=== PATIENT | male | born 1970 | race African-American/Black ===

== ENCOUNTER 2019-06-04 12:23 | Emergency (ER) | payer SELFPAY ==
--- NOTE | ~2019-06-04 | XR_ITS ---
XR chest 1V portable DATE: 06/04/2019 14:13 INDICATION: Cough, fever TECHNIQUE: Portable upright AP chest on 06/04/2019 at 1408 hours COMPARISON: 09/29/2015 PA and lateral chest FINDINGS: Normal heart size. No hilar or mediastinal enlargement. No pulmonary infiltrate or consolid ation, pleural effusion or pulmonary vascular congestion or pneumothorax. IMPRESSION: No active cardiopulmonary disease Reviewed, dictated and finalized at location B.
[2019-06-04 12:30] VITALS: BP 137/91; PULSE 87; RESP 16; TEMP 37.4; O2SAT 98
--- NOTE | 2019-06-04 12:47 | PC.NURSE ---
pt states has been using inhalers, robitussin and mucinex without much relief.
--- NOTE | 2019-06-04 13:20 | ED.URI ---
HPI - URI/Sore Throat General Chief Complaint: Upper Respiratory Infection Stated Complaint: PERSISTENT COUGH, INT FEVER Time Seen by Provider: 06/04/19 13:02 Source: patient Mode of arrival: ambulatory Limitations: no limitations History of Present Illness HPI Narrative: Patient presents with chief complaint of dry cough and low-grade fever of 100 ?F over the past 2 days. Patient states his cough has not been productive. Patient states he has a history of bronchitis and his symptoms feel the same. Patient denies body aches, nausea, vomiting, diarrhea, lethargy, shortness of breath, chest pain. Patient states that he attempted to use an inhaler for years ago, Robitussin and Mucinex without resolution of his symptoms. Patient denies international travel or known COVID exposure. Patient states he came to the ER today for antibiotics and a new inhaler. Patient denies history of smoking or COPD. Related Data Allergies Allergy/AdvReac Type Severity Reaction Status Date / Time No Known Allergies Allergy Verified 06/04/19 12:48 Review of Systems Review of Systems: Narrative: CONSTITUTIONAL: Reports low-grade fever denies chills, or sweats. EYES: Denies visual changes, redness, or discharge. ENT: Denies rhinorrhea, congestion, sore throat, or otalgia. CARDIOVASCULAR: Denies chest pain, palpitations, or edema. RESPIRATORY: Reports dry cough denies dyspnea. GASTROINTESTINAL: Denies abdominal pain, nausea, vomiting, or diarrhea. GENITOURINARY: Denies dysuria or hematuria. SKIN: Denies rash or itching. MUSCULOSKELETAL: Denies back pain, joint pain, or myalgia. NEUROLOGIC: Denies headache, numbness, dizziness, or weakness. PSYCHIATRIC: Denies anxiety or depression. Exam Narrative: Exam Narrative: GENERAL: Well-appearing, well-nourished, and in no acute distress. HEAD: Normocephalic, atraumatic. EYES: PERRLA and EOMI. ENT: Nares clear, no rhinorrhea or epistaxis. Mucous membranes moist. Oropharynx without tonsillar hypertrophy exudate or other lesions. Bilateral TMs pearly ovalles nonbulging CHEST: Clear to auscultation. No respiratory distress. No wheezes rales or rhonchi. No tachypnea. HEART: Regular rate and rhythm. No murmur heard. Normal peripheral pulses. SKIN: Warm, dry, no rash. NEURO: No focal deficits. Alert and oriented x3. PSYCH: Normal mood and affect. Course Vital Signs Vital signs: Vital Signs Temperature 99.3 F 06/04/19 12:30 Pulse Rate 87 06/04/19 12:30 Respiratory Rate 16 06/04/19 12:30 Blood Pressure 137/91 H 06/04/19 12:30 Pulse Oximetry 98 06/04/19 12:30 Temperature 99.3 F 06/04/19 12:30 Pulse Rate 87 06/04/19 12:30 Respiratory Rate 16 06/04/19 15:47 Blood Pressure 137/91 H 06/04/19 12:30 Pulse Oximetry 98 06/04/19 12:30 MDM - URI/Sore Throat MDM Narrative Medical decision making narrative: Patient told the nurse that he wants to be tested for COVID so that he can stop being hounded by his employer and his family. Informed patient that the health department is in control of testing and he should contact them if he desires outpatient testing. Patient is not hypoxic and having any trouble breathing.He states he does not feel weak, fatigued, or think he needs admission by any means. His flu test was negative and there is not sign of pneumonia on his chest xray. Patient is instructed to go home and self quarantine. He will be given a new inhaler and will be prescribed cough syrup and will receive work note to not return while he is ill. Differential Diagnosis Differential diagnosis: Likely upper respiratory infection, croup, otitis media, sinusitis, viral infection, bronchitis, influenza and pharyngitis Lab Data Labs: Influenza A Screen Negative Reference Range: Negative Influenza B Screen Negative Reference Range: Negative Imaging Data Radiologist's impression: ITS Impressions Chest X-Ray 06/04/19 14:15 IMPRESSION: No active ca
--- NOTE | 2019-06-04 15:09 | PC.NURSE ---
Pt approaches desk asking how he gets a covid-19 test, and if we have them here. Explained that there is criteria for testing, that due to limitations with tests that the state [facility] is strict with guidelines regarding whom gets the test.
--- NOTE | 2019-06-04 15:12 | PC.NURSE ---
pt came to ed desk request COVID kit. pt made aware that testing is done based on health dept guidelines. mabel bruce informed of pts concerns
[2019-06-04 15:47] VITALS: RESP 16
== END 2019-06-04 15:49 | disposition home or self-care (01) ==
PROVIDERS: Emergency Provider Emergency Medicine
DX: B34.9 Viral infection, unspecified (principal)
CPT/HCPCS: 71045; 87804; 99283

== ENCOUNTER 2020-04-14 21:32 | Emergency (ER) | payer OTHER, SELFPAY ==
--- NOTE | ~2020-04-14 | CT_ITS ---
EXAMINATION: CTA chest PE protocol DATE: 04/15/2020 01:23 INDICATION: Shortness of breath. TECHNIQUE: Computed tomography angiography (CTA) of the chest was performed with 100 mL Omnipaque-350 intravenous contrast timed to evaluate the pulmonary arteries. Coronal maximum intensity projection 3D-reconstructions were created by the technologist. Automated exposure control and iterative reconst ruction technique were employed. The dose-length product was 1019.02 mGy-cm. COMPARISON: Chest 2 views 04/14/2020 FINDINGS: The lung volumes are small. There are patchy airspace and groundglass opacities throughout the lungs bilaterally. There is mild emphysema. No pleural effusion. The heart size is normal. There is no pulmonary embolus. There is thickening of left adrenal gland, likely benign. There is mild bila teral gynecomastia. There is mild mediastinal lymphadenopathy, likely reactive. There is mild thoraci c spondylosis. IMPRESSION: 1. No pulmonary embolus. Sensitivity is severely decreased by artifacts including motion artifact. 2. Small lung volumes with diffuse lung disease, consistent with COVID-19 pneumonia. 3. Mild emphysema. 4. Mild mediastinal lymphadenopathy, likely reactive. Reviewed, dictated and finalized at location A. ER INSULATION IMPRESSION: 1. No pulmonary embolus. Sensitivity is severely decreased by artifacts includi ng motion artifact. 2. Small lung volumes with diffuse lung disease, consistent with COVID-19 pneum onia. 3. Mild emphysema. 4. Mild mediastinal lymphadenopathy, likely reactive.
--- NOTE | ~2020-04-14 | XR_ITS ---
EXAMINATION: XR chest 2V DATE: 04/14/2020 22:55 INDICATION: COVID positive presenting with shortness of breath and chest pressure TECHNIQUE: PA and lateral views of the chest were obtained. COMPARISON: Chest radiograph dated 06/04/2019 FINDINGS: Interstitial and mild airspace opacities in the right mid and bilateral lower lung zones. No pleural effusion or pneumothorax. Cardiac silhouette is mildly enlarged although this could be exaggerated by the decreased lung volumes. IMPRESSION: 1. New opacities in the right mid and bilateral lower lung zones which be would be consistent with co mputed pneumonia with differential including atelectasis or pulmonary edema. 2. Possible mild cardiomegaly. Reviewed, dictated and finalized at location A. TURNER IMPRESSION: 1. New opacities in the right mid and bilateral lower lung zones which be would be consistent with computed pneumonia with differential including atelectasis or pulmonary edema. 2. Possible mild cardiomegaly.
[2020-04-14 21:45] VITALS: BP 183/100; PULSE 81; RESP 20; TEMP 37; O2SAT 95
--- NOTE | 2020-04-14 22:37 | ECG_ITS ---
Measurements Intervals [place] Rate: 77 P: 45 [place]: 170 QRS: -6 QRSD: 125 T: 17 QT: 384 QTc: 435 Interpretive Statements SINUS RHYTHM VOLTAGE CRITERIA FOR LVH BORDERLINE T WAVE ABNORMALITY- INFERIOR LEADS BORDERLINE ECG Electronically Signed On 04-15-2020 6:58:37 ROLL[employer] STAKER by Pepe Zambrano D.O.
[2020-04-14 23:10] VITALS: BP 124/75; PULSE 83; RESP 18; O2SAT 96
[2020-04-14 23:19] LABS: Basophils Percent Auto 0.2 % (0.2-1.2); Eosinophils Percent Auto 0.4 % (0-4.4); Hematocrit 45.2 % (42.0-52.0); Immature Granulocyte Absolute 0.05 K/mm3 (0.00-0.031); Lymphocytes Absolute Auto 1.01 K/mm3 (0.9-3.2); Lymphocytes Percent Auto 19.6 % (18.3-44.2); Mean Corpuscular HGB Conc 33.2 g/dl (32-36); Mean Corpuscular Hemoglobin 28.6 pg (26-34); Mean Corpuscular Volume 86.1 fl (80-100); Mean Platelet Volume 9.1 fl (7.4-10.4); Monocytes Absolute Auto 0.3 K/mm3 (0.1-0.6); Monocytes Percent Auto 4.8 % (2.6-8.5); Neutrophils Absolute Auto 3.8 K/mm3 (1.3-6.7); Platelet Count Result 223 k/mm3 (150-375); Red Blood Count 5.25 M/mm3 (4.6-6.20); Red Cell Distribution Width 13.4 % (11.5-14.5); White Blood Count 5.2 K/mm3 (4.5-10.0)
[2020-04-14 23:29] LABS: INR 0.9; Prothrombin Time 12.2 Seconds (11.1-14.7)
[2020-04-14 23:30] LABS: Partial Thromboplastin Time 31.9 SECONDS (22.3-36.8)
[2020-04-14 23:32] LABS: Anion Gap 5 mmol/L (8-16); Blood Urea Nitrogen 12 mg/dL (9-20); Calcium 7.5 mg/dL (8.4-10.2); Carbon Dioxide 30 mmol/L (22-30); Chloride 103 mmol/L (98-107); D Dimer 0.84 ug/mL (<0.48); Estimated CRCL calculation 106 ml/min; Estimated Glomerular Filt Rate > 60; Glucose 140 mg/dL (75-110); Potassium 4.1 mmol/L (3.4-5.0); Sodium 138 mmol/L (137-145)
[2020-04-14 23:43] LABS: Troponin I < 0.012 ng/mL (0.000-0.034)
--- NOTE | 2020-04-15 01:04 | ED.GENADULT ---
HPI - General Adult General Chief complaint: Shortness of Breath/Dyspnea Stated complaint: Covid+ Short of breath Time Seen by Provider: 04/15/20 00:41 Source: patient History of Present Illness HPI narrative: Patient is a 49 y/o male complaining of cough for 1 week. He states that he coughs up mucous most of time. He tried Mucinex and Albuterol inhaler which did not help with his symptoms. He also has some pleuritic chest pain and SOB. He denies any fever. He states that he tested positive for COVID 4 days ago. Related Data Allergies Allergy/AdvReac Type Severity Reaction Status Date / Time No Known Allergies Allergy Verified 04/14/20 21:34 Review of Systems Constitutional: Constitutional: Denies chills, Denies fever(s), Denies headache(s) and Denies weakness Eyes: Eyes: Denies blurry vision ENT: Denies headache(s) and Denies neck pain Cardiovascular: Cardiovascular: Reports chest pain and Reports dyspnea Respiratory: Respiratory: Reports cough and Reports dyspnea Gastrointestinal: Gastrointestinal: Denies abdominal pain, Denies diarrhea, Denies nausea and Denies vomiting Genitourinary: Genitourinary: Denies hematuria and Denies dysuria Musculoskeletal: Musculoskeletal: Denies back pain and Denies neck pain Neurologic: Denies headache(s) and Denies weakness [facility] Social History Social History Gender identity (if verbalized by the patient): Male Exam Const: General: no acute distress and well developed Orientation/consciousness: oriented to person, oriented to place, oriented to time and patient oriented x3 HENMT: Head: normocephalic Ears: external ears normal General nose exam: Normal external nose present Eyes: General: appearance normal, both eyes and all related structures Conjunctivae: conjunctivae normal Neck: Neck: normal visual inspection and full ROM Chest: Chest palpation & inspection: normal inspection of the chest and no tenderness Resp: Effort & Inspection: normal respiratory effort Auscultation: clear to auscultation bilaterally Cardio: Rate: regular rate Rhythm: regular rhythm GI: GI Palp: No abdominal tenderness and Yes Soft to palpation Skin: General skin exam: normal color and turgor normal Neuro: General: oriented to person, oriented to place, oriented to time and patient oriented x3 Cognition (Neuro): normal cognition Extrem: General: normal to inspection, full ROM and no pedal edema Psych: Appearance: grossly normal Mental Status: mental status grossly normal Affect: normal affect Course Vital Signs Vital signs: Vital Signs Temperature 37.0 C 04/14/20 21:45 Pulse Rate 81 04/14/20 21:45 Respiratory Rate 20 04/14/20 21:45 Blood Pressure 183/100 H 04/14/20 21:45 Pulse Oximetry 95 04/14/20 21:45 Temperature 36.8 C 04/15/20 02:59 Pulse Rate 76 04/15/20 02:59 Respiratory Rate 16 04/15/20 02:59 Blood Pressure 131/75 04/15/20 02:59 Pulse Oximetry 99 04/15/20 02:59 Medical Decision Making Vital Signs Vital Signs: Vital Signs Temperature 37.0 C 04/14/20 21:45 Pulse Rate 81 04/14/20 21:45 Respiratory Rate 20 04/14/20 21:45 Blood Pressure 183/100 H 04/14/20 21:45 Pulse Oximetry 95 04/14/20 21:45 Temperature 36.8 C 04/15/20 02:59 Pulse Rate 76 04/15/20 02:59 Respiratory Rate 16 04/15/20 02:59 Blood Pressure 131/75 04/15/20 02:59 Pulse Oximetry 99 04/15/20 02:59 Lab Data Result diagrams: 04/14/20 23:12 04/14/20 23:12 Labs: Lab Results 04/14/20 04/14/20 04/14/20 Range/Units 23:12 23:12 23:12 WBC 5.2 (4.5-10.0) K/mm3 RBC 5.25 (4.6-6.20) M/mm3 Hgb 15.0 (14.0-18.0) g/dL Hct 45.2 (42.0-52.0) % MCV 86.1 (80-100) fl MCH 28.6 (26-34) pg MCHC 33.2 (32-36) g/dl RDW 13.4 (11.5-14.5) % Plt Count 223 (150-375) k/mm3 MPV 9.1 (7.4-10.4) fl Immature Gran % (Auto
[2020-04-15] MEDS: KETOROLAC 30 MG/ML VIAL (*BKC) IV PUSH (01:10)
[2020-04-15] MEDS: guaiFENesin/DEXTROMETHORPHAN 10 ML UDC PO (01:15)
[2020-04-15 02:32] LABS: Troponin I < 0.012 ng/mL (0.000-0.034)
[2020-04-15 02:59] VITALS: BP 131/75; PULSE 76; RESP 16; TEMP 36.8; O2SAT 99
== END 2020-04-15 03:00 | disposition home or self-care (01) ==
PROVIDERS: Emergency Medicine; Emergency Provider Emergency Medicine
DX: U07.1 COVID-19 (principal); R07.9 Chest pain, unspecified; R94.31 Abnormal electrocardiogram [ECG] [EKG]; R91.8 Other nonspecific abnormal finding of lung field
CPT/HCPCS: 36415; 71046; 71275; 80048; 84484; 85025; 85380; 85610; 85730; 93005; 96374; 99284; A9270; J1885; Q9967

== ENCOUNTER 2022-09-22 14:17 | Emergency (ER) | payer OTHER, SELFPAY ==
--- NOTE | ~2022-09-22 | CT_ITS ---
EXAMINATION: CT soft tissue neck w con DATE: 09/22/2022 18:31 INDICATION: Right lateral facial swelling, pain with eating TECHNIQUE: Computed tomography (CT) of the neck was performed with 75 mL Omnipaque-350 intravenous co ntrast. The dose-length product was 1179.55 mGy-cm. COMPARISON: None FINDINGS: Motion artifact required repeat imaging. The thyroid gland is unremarkable. The submandibular and parotid glands are symmetric. There is no cervical lymphadenopathy. Mildly prominent adenoids and p alatine tonsils. There are no masses identified. The superior mediastinum is unremarkable. The a irway is unremarkable. Parapharyngeal and pre-glottic fat planes are preserved. Medial course of the left common carotid artery. The orbits are unremarkable. Small left inferior maxillary sinus r etention cyst or polyp, minimal anterior ethmoid mucosal thickening, the remaining aerated spaces are clear. Visualized lung parenchyma is clear. There is cervical spondylosis. IMPRESSION: Mild prominence of the adenoids and palatine tonsils, otherwise normal CT soft tissue neck findings. Reviewed, dictated and finalized at location K.
[2022-09-22 14:22] VITALS: BP 156/86; PULSE 90; RESP 20; TEMP 36.1; O2SAT 97
--- NOTE | 2022-09-22 17:08 | ED.GENADULT ---
HPI - General Adult General Chief complaint: Unspecified Stated complaint: swelling to right side of face/lump on neck Time Seen by Provider: 09/22/22 15:45 Source: patient Mode of arrival: ambulatory Limitations: no limitations History of Present Illness HPI narrative: Patient is a 52-year-old male who presents to the ED with report of swelling to his right lateral face. Patient reports having pain and swelling for the last 3 days. He states the swelling intermittently worsens and improves. Some improvement with icing face. He noticed the pain was worse with eating or drinking 3 days ago, has not had any further pain with eating since then. He has been taking Tylenol for the pain. Denies any fevers, nausea, vomiting, difficulty breathing, difficulty swallowing, sore throat, dental pain, gum pain or swelling. Patient also mentions having a lump to his left posterior neck for several years which seems to be increasing in size. Related Data Allergies Allergy/AdvReac Type Severity Reaction Status Date / Time No Known Allergies Allergy Verified 09/22/22 14:18 Review of Systems Review of Systems: CONSTITUTIONAL: Denies fever, chills, or sweats. EYES: Denies visual changes, redness, or discharge. ENT: See HPI. CARDIOVASCULAR: Denies chest pain. RESPIRATORY: Denies dyspnea. GASTROINTESTINAL: Denies abdominal pain, nausea, vomiting. SKIN: See HPI. All systems reviewed & are unremarkable except as noted in HPI and below PMFSH Social History Social History Gender identity (if verbalized by the patient): Male Exam Narrative: GENERAL: Well appearing, morbidly obese with BMI of 43.2, non-toxic, in no acute distress. HEAD: Normocephalic, atraumatic. ENT: Mild swelling and tenderness to palpation over right lateral mandible/posterior jaw/anterior ear region, consistent with the area of parotid gland. No purulent discharge intraorally. No tenderness along upper or lower right-sided gumlines. No obvious dental infections. Prior dental extraction to right lower tooth. No focal abscess. No stridor. No trismus. No tonsillar hypertrophy or exudate. Uvula midline. NECK: Supple. No significant adenopathy. Approximately 3 x 4 cm lipomatous lesion to left posterior cervical region, nontender, freely movable. RESPIRATORY: Airway patent, respirations nonlabored. Clear to auscultation bilaterally, no rales, rhonchi, wheezing. CARDIOVASCULAR: Regular rate and rhythm without murmurs, rubs, or gallops. Radial pulses 2+ and equal bilaterally. MUSCULOSKELETAL: Moves all extremities. Strength/ROM intact without gross deformities. SKIN: Warm, dry, normal color. No rashes. NEURO: A&O X3. Speech clear. Cranial nerves II-XII grossly intact. Steady gait. No ataxic movements. PSYCHIATRIC: Appropriate mood and affect. Normal interaction. Course Vital Signs Vital signs: Vital Signs Temperature 97.0 F L 09/22/22 14:22 Pulse Rate 90 09/22/22 14:22 Respiratory Rate 20 09/22/22 14:22 Blood Pressure 156/86 H 09/22/22 14:22 Pulse Oximetry 97 09/22/22 14:22 Oxygen Delivery Room Air 09/22/22 14:22 Temperature 97.0 F L 09/22/22 14:22 Pulse Rate 67 09/22/22 18:56 Respiratory Rate 18 09/22/22 18:56 Blood Pressure 150/71 H 09/22/22 18:56 Pulse Oximetry 97 09/22/22 18:56 Oxygen Delivery Room Air 09/22/22 14:22 Medical Decision Making MDM Narrative Medical decision making narrative: Patient presented to ED with 3-day history of right lateral jaw/face swelling and pain. VSS upon arrival. Afebrile. Exam possibly consistent with parotitis with mild tenderness and swelling noted laterally along jaw. No evidence of respiratory distress. No stridor, trismus. Basic blood work obtained and unremarkable. No leukocytosis. CT soft tissue neck also reassuring, showing prominence of tonsils and adenoids, no evidence of parotitis, salivary glands noted to be symmetric
[2022-09-22 18:04] LABS: Basophils Absolute Auto 0.1 K/mm3 (0.0-0.1); Basophils Percent Auto 0.6 % (0.2-1.2); Eosinophils Absolute Auto 0.2 K/mm3 (0-0.3); Eosinophils Percent Auto 2.7 % (0-4.4); Hematocrit 45.8 % (42.0-52.0); Hemoglobin 14.9 g/dL (14.0-18.0); Immature Granulocyte Absolute 0.03 K/mm3 (0.00-0.031); Immature Granulocyte Percent A 0.4 % (0-0.5); Lymphocytes Absolute Auto 2.26 K/mm3 (0.9-3.2); Lymphocytes Percent Auto 27.5 % (18.3-44.2); Mean Corpuscular HGB Conc 32.5 g/dl (32-36); Mean Corpuscular Hemoglobin 28.2 pg (26-34); Mean Corpuscular Volume 86.7 fl (80-100); Mean Platelet Volume 9.1 fl (7.4-10.4); Monocytes Absolute Auto 0.8 K/mm3 (0.1-0.6); Monocytes Percent Auto 9.2 % (2.6-8.5); Neutrophils Absolute Auto 4.9 K/mm3 (1.3-6.7); Neutrophils Percent Auto 59.6 % (45.5-73.1); Platelet Count Result 319 k/mm3 (150-375); Red Blood Count 5.28 M/mm3 (4.6-6.20); White Blood Count 8.2 K/mm3 (4.5-10.0)
[2022-09-22 18:14] LABS: Alanine Aminotransferase 34 U/L (6-50); Albumin Level 4.2 g/dL (3.5-5.1); Alkaline Phosphatase 85 U/L (38-126); Anion Gap 5 mmol/L (8-16); Aspartate Amino Transferase 29 U/L (17-59); Bilirubin,Total 0.3 mg/dL (0.2-1.3); Blood Urea Nitrogen 15 mg/dL (9-20); Calcium 8.7 mg/dL (8.4-10.2); Carbon Dioxide 26 mmol/L (22-30); Chloride 106 mmol/L (98-107); Estimated CRCL calculation 106 ml/min; Estimated Glomerular Filt Rate > 60; Glucose 93 mg/dL (65-110); Potassium 4.3 mmol/L (3.4-5.0); Sodium 137 mmol/L (137-145)
[2022-09-22] MEDS: IBUPROFEN 600 MG TABLET PO (18:19)
[2022-09-22 18:56] VITALS: BP 150/71; PULSE 67; RESP 18; O2SAT 97
== END 2022-09-22 19:52 | disposition home or self-care (01) ==
PROVIDERS: Emergency Provider Physician Assistant
DX: D17.1 Benign lipomatous neoplasm of skin and subcutaneous tissue of trunk (principal); R22.0 Localized swelling, mass and lump, head
CPT/HCPCS: 36415; 70491; 80053; 85025; 99284; A9270; Q9967

== ENCOUNTER 2023-03-09 19:05 | Observation (INO) | payer OTHER, SELFPAY ==
--- NOTE | ~2023-03-09 | CT_ITS ---
EXAMINATION: CTA brain carotid DATE: 03/09/2023 20:23 INDICATION: Cerebrovascular accident. Right hemiparesis. Slurred speech. TECHNIQUE: Computed tomographic angiography (CTA) of the head was performed with 100 mL Omnipaque-350 intravenous contrast. CTA of the neck was performed with intravenous contrast. Automated exposure co ntrol and iterative reconstruction technique were employed. The dose-length product was 1158.08 mGy-c m. Maximum intensity projection and volume rendered 3D-reconstructions were created by the technologi st on a separate workstation. COMPARISON: Head CT 03/09/2023 FINDINGS: HEAD CTA: There is no intracranial hemorrhage, acute infarction, or abnormal intracranial mass lesion . The ventricles are normal in size. The orbits are normal. There is mild mucosal thickening in the e thmoid sinuses. The mastoid air cells are normal. The vertebral arteries are codominant. There is no significant stenosis of basilar artery or the posterior cerebral arteries. The posterior communicatin g arteries are normal. There is no significant stenosis of the intracranial internal carotid arteries or anterior or middle cerebral arteries. Anterior communicating artery is normal. There is no aneury sm. NECK CTA: There are no pathologically enlarged lymph nodes. There is no significant stenosis of the v ertebral arteries. There is no visible plaque i0n the proximal internal carotid arteries. There is % stenosis of the proximal right internal carotid artery relative to normal distal artery lumen diamet er (NASCET criteria). There is 0% stenosis of the proximal left internal carotid artery relative to n ormal distal artery lumen diameter. There is moderate cervical spondylosis. IMPRESSION: 1. Normal brain. 2. No aneurysm or significant intracranial arterial stenosis. 3. 0% stenosis of the proximal internal carotid arteries relative to normal distal artery lumen diame ters (NASCET criteria). Reviewed, dictated and finalized at location E. HER FEEDER IMPRESSION: 1. Normal brain. 2. No aneurysm or significant intracranial arterial stenosis. 3. 0% stenosis of the proximal internal carotid arteries relative to normal dis bibi artery lumen diameters (NASCET criteria).
--- NOTE | ~2023-03-09 | US_ITS ---
EXAMINATION: US venous doppler [facility] DATE: 03/10/2023 17:36 INDICATION: Stroke. TECHNIQUE: Grayscale ultrasound images without and with compression and Doppler ultrasound images of the bilateral lower extremity veins were obtained. COMPARISON: None. FINDINGS: The visualized portions of right common femoral vein, profunda (deep) femoral vein, femoral vein, pop liteal vein, peroneal veins, posterior tibial veins, and greater saphenous vein outflow are patent. The visualized portions of left common femoral vein, profunda femoral vein, femoral vein, popliteal v ein, peroneal veins, posterior tibial veins, and greater saphenous vein outflow are patent. IMPRESSION: 1. No deep venous thrombosis. Reviewed, dictated and finalized at location E. MATIC STACKER
--- NOTE | ~2023-03-09 | MR_ITS ---
EXAMINATION: MR brain/brain stem wo/w con DATE: 03/10/2023 13:35 INDICATION: Transient ischemic episode TECHNIQUE: Magnetic resonance imaging (MRI) of the brain and brainstem was performed without and with 20 mL Multihance intravenous contrast. Sequences included sagittal and axial T1-weighted SE, axial d iffusion-weighted FS SE, axial T2*-weighted GRE, axial T2-weighted FLAIR, and axial T2-weighted FSE. Postcontrast axial and coronal T1-weighted SE was obtained. Apparent diffusion coefficient (ADC) maps were created. COMPARISON: CT dated 03/09/2023 FINDINGS: There are no areas of restricted diffusion to suggest acute infarction. No intracranial hemorrhage or abnormal intracranial mass lesion. There are scattered areas of nonspecific increased T2-weighted si gnal intensity in the cerebral white matter, predominantly involving the deep and periventricular whi te matter. There are no intraparenchymal signal abnormalities seen on the other pulse sequences. The ventricles are symmetric and normal in size. There are no abnormal extra-axial fluid collections. Paulie w voids are seen in the cerebral arteries on the T2-weighted sequences consistent with their expected patency. Visualized orbits and soft tissues are unremarkable. There are few mildly prominent but sti ll normal-sized intraparotid lymph nodes, the largest with typical kidney tsang shaped on the right me asuring 7 mm in maximal short axis diameter. There are no areas of abnormal enhancement on the post c ontrast images. IMPRESSION: 1. Minimal scattered nonspecific white matter T2 hyperintensity which is within normal limits for age . No acute intracranial process or abnormally enhancing brain lesions. Reviewed, dictated and finalized at location A. ING UNIT MANAGER IMPRESSION: 1. Minimal scattered nonspecific white matter T2 hyperintensity which is within normal limits for age. No acute intracranial process or abnormally enhancing b rain lesions.
--- NOTE | ~2023-03-09 | CT_ITS ---
EXAMINATION: CT brain w con DATE: 03/09/2023 19:19 INDICATION: Right hemiparesis. Slurred speech. TECHNIQUE: Computed tomography (CT) of the head was performed without intravenous contrast. The mA wa s adjusted according to patient size. Iterative reconstruction technique was employed. The dose-lengt h product was 605.33 mGy-cm. COMPARISON: None FINDINGS: There is no intracranial hemorrhage, acute infarction, or abnormal intracranial mass lesion . The ventricles are normal in size. The orbits are normal. There is mild mucosal thickening in the p aranasal sinuses. The mastoid air cells are normal. IMPRESSION: 1. Normal brain. Reviewed, dictated and finalized at location E. ITY ASSISTANT IMPRESSION: 1. Normal brain.
--- NOTE | ~2023-03-09 | US_ITS ---
EXAMINATION: US abdomen limited DATE: 03/10/2023 17:36 INDICATION: Hepatitis. TECHNIQUE: Multiple grayscale and Doppler ultrasound images of the abdomen were obtained. COMPARISON: Chest CT 04/15/2020 FINDINGS: The visualized portions of the head and body of the pancreas are normal. The liver is francesco l without focal lesion. Shadowing gallstones fill the gallbladder. There was no sonographic Raines si gn. The common duct is normal and measures 2 mm. Right kidney is normal. IMPRESSION: 1. Cholelithiasis. No evidence of acute cholecystitis. Reviewed, dictated and finalized at location E. IANCE COUNSELOR
--- NOTE | ~2023-03-09 | XR_ITS ---
EXAMINATION: XR chest 1V portable DATE: 03/09/2023 20:14 INDICATION: Neurological symptoms. TECHNIQUE: A single frontal view of the chest was obtained. COMPARISON: Chest 2 views 04/14/2020 FINDINGS: Calcified left lung nodules are consistent with old granulomatous disease. No pleural effus ion or pneumothorax. The heart size is normal. IMPRESSION: 1. No acute cardiopulmonary disease. Reviewed, dictated and finalized at location E. ATHLETIC TRAINER/STRENGTH COACH
[2023-03-09 19:09] VITALS: BP 167/98; PULSE 74; RESP 18; TEMP 37.2; O2SAT 100
[2023-03-09 19:16] LABS: Glucose Point of Care 105 mg/dl (65-105)
--- NOTE | 2023-03-09 19:21 | ECG_ITS ---
Measurements Intervals [place] Rate: 73 P: 45 [place]: 184 QRS: -14 QRSD: 102 T: 31 QT: 383 QTc: 423 Interpretive Statements SINUS RHYTHM VOLTAGE CRITERIA FOR LVH BASELINE WANDER- V1 BORDERLINE ECG COMPARED TO ECG 04/14/2020 23:07:29 NO SIGNIFICANT CHANGES Electronically Signed On 03-10-2023 6:42:49 [employer]INICAL SOCIAL WORK THERAPIST by Pepe Zambrano D.O.
--- NOTE | 2023-03-09 19:27 | ED.NEUROSD ---
HPI - Neuro Symptoms/Deficit General Chief Complaint: Neuro Symptoms/Deficit Stated Complaint: SLURRED SPEECH Time Seen by Provider: 03/09/23 19:23 Source: patient and family Limitations: no limitations History of Present Illness HPI Narrative: Patient is a 52-year-old male presents to the emergency department for neurological complaints. Approximately 1 hour prior to arrival patient developed paresthesias in his right upper extremity and right lower extremity primarily in his right foot and was also feeling slightly weak in the right lower extremity and also had some slightly slurred speech and mild confusion all of which are improving at this time and practically resolved. Patient has a history of TIAs. patient denies any recent illness or recent injuries. Patient denies use of blood thinners. Patient denies any neurological deficits at baseline. Patient states he has been his normal state of health as of late. Patient denies melena, hematochezia, diarrhea, vomiting, chest pain, shortness of breath, urinary discomfort, sore throat, nasal congestion. Patient admits to a dry cough for the past 1-2 months. Patient denies vision changes, difficulty swallowing, neck pain, back pain. Related Data Allergies Allergy/AdvReac Type Severity Reaction Status Date / Time No Known Allergies Allergy Verified 09/22/22 14:18 Review of Systems Review of Systems: A 10 system review of systems was completed on the patient and is negative except for what is stated in the HPI. Nursing and ancillary documentation was reviewed. [facility] Social History Social History Gender identity (if verbalized by the patient): Male Comments At time of signature, I have reviewed and agree with nursing past medical, surgical, social and family history unless otherwise noted. Please see the nursing chart for further information. There is no relevant family history pertinent to the presenting complaint. Exam Narrative: CONST: No acute distress. Well nourished. HENMT: Head is normocephalic and atraumatic. Moist mucous membranes. No posterior oropharynx erythema. EYES: No conjunctival icterus, injection, or pallor. PERRL. NECK: No meningeal signs. RESP: Able to speak in full sentences. Normal respiratory effort. CTAB. CARDIO: Regular rate. Regular rhythm. 2+ DP and radial pulses bilaterally. GI: Nondistended. No tenderness to palpation. Soft. : No CVA tenderness to palpation. SKIN: No rashes or lesions noted on exposed skin. NEURO: Oriented x3. Moves all extremities. No pronator drift of the bilateral upper extremities. Bilateral lower extremities without drift. No nystagmus. Extraocular motions intact. Speech is clear and fluent. Sensation intact to light touch throughout all 4 extremities. No inattention or extinction. No facial asymmetry. Following all commands appropriately. EXTREM/MSK/BACK: No pedal edema. PSYCH: Normal affect. Course Vital Signs Vital signs: Vital Signs Temperature 99 F 03/09/23 19:09 Pulse Rate 74 03/09/23 19:09 Respiratory Rate 18 03/09/23 19:09 Blood Pressure 167/98 H 03/09/23 19:09 Pulse Oximetry 100 03/09/23 19:09 Temperature 99 F 03/09/23 19:09 Pulse Rate 66 03/09/23 21:53 Respiratory Rate 16 03/09/23 21:53 Blood Pressure 150/94 H 03/09/23 21:53 Pulse Oximetry 99 03/09/23 21:53 MDM - Neuro Symptoms/Deficit MDM Narrative Medical decision making narrative: Patient presents with symptoms most concerning for an acute CVA with symptoms mostly resolved at this time. Given history and exam, I have lower suspicion for: infection, toxicologic ingestion, seizure, complex migraine, dissection, myocardial infarction, metabolic derangements, medication adverse effects, TIA, MS flair, mass, Tadeo?s paralysis. EKG without evidence of STEMI or ischemia. Fingerstick BS not hypoglycemic Clinical picture does not suggest oth
[2023-03-09 19:38] LABS: Basophils Percent Auto 0.2 % (0.2-1.2); Eosinophils Absolute Auto 0.1 K/mm3 (0-0.3); Hematocrit 44.6 % (42.0-52.0); Immature Granulocyte Absolute 0.04 K/mm3 (0.00-0.031); Immature Granulocyte Percent A 0.9 % (0-0.5); Lymphocytes Absolute Auto 1.82 K/mm3 (0.9-3.2); Mean Corpuscular HGB Conc 31.4 g/dl (32-36); Mean Corpuscular Hemoglobin 26.8 pg (26-34); Mean Corpuscular Volume 85.4 fl (80-100); Mean Platelet Volume 8.7 fl (7.4-10.4); Monocytes Absolute Auto 0.6 K/mm3 (0.1-0.6); Monocytes Percent Auto 13.6 % (2.6-8.5); Neutrophils Percent Auto 43.3 % (45.5-73.1); Platelet Count Result 370 k/mm3 (150-375); Red Blood Count 5.22 M/mm3 (4.6-6.20); Red Cell Distribution Width 13.5 % (11.5-14.5); White Blood Count 4.6 K/mm3 (4.5-10.0)
[2023-03-09 19:48] LABS: Alanine Aminotransferase 188 U/L (6-50); Albumin Level 4.2 g/dL (3.5-5.1); Alkaline Phosphatase 98 U/L (38-126); Anion Gap 10 mmol/L (8-16); Aspartate Amino Transferase 82 U/L (17-59); Bilirubin,Total 0.4 mg/dL (0.2-1.3); Blood Urea Nitrogen 12 mg/dL (9-20); Calcium 8.9 mg/dL (8.4-10.2); Carbon Dioxide 25 mmol/L (22-30); Chloride 102 mmol/L (98-107); Estimated CRCL calculation 117 ml/min; Estimated Glomerular Filt Rate > 60; Glucose 100 mg/dL (65-110); Sodium 137 mmol/L (137-145)
[2023-03-09 19:51] LABS: INR 0.9; Prothrombin Time 12.8 Seconds (11.1-14.7)
[2023-03-09 19:52] LABS: Partial Thromboplastin Time 26.3 SECONDS (22.3-36.8)
[2023-03-09 19:56] VITALS: PULSE 76
[2023-03-09 19:59] LABS: Troponin I < 0.012 ng/mL (0.000-0.034)
[2023-03-09 20:00] VITALS: BP 150/92; PULSE 77; RESP 16; O2SAT 98
[2023-03-09 20:54] LABS: Appearance Urine Clear (Clear); Bilirubin Urine Negative (Negative); Blood Urine Negative (Negative); Color Urine Yellow (Yellow); Glucose Urine UA Negative (Negative); Ketones Urine Negative (Negative); Leukocyte Esterase Ur Negative LEU/UL (Negative); Nitrate Urine Negative (Negative); Protein Urine Negative (Negative); Urobilinogen Urine 0.2 mg/dL (<2.0); pH Urine 5.5 (5.0-9.0)
[2023-03-09 21:08] LABS: Add Urine Microscopic? NO
[2023-03-09 21:10] LABS: Amphetamine Screen Urine Negative (Negative); Barbiturate Screen Urine Negative (Negative); Benzodiazepines Screen Urine Negative (Negative); Cannabinoid Screen Urine Negative (Negative); Cocaine Screen Urine Negative (Negative); Methadone Screen Urine Negative (Negative); Opiate Screen Urine Negative (Negative); Phencyclidine Screen Urine Negative (Negative)
[2023-03-09] MEDS: ASPIRIN 81 MG CHEWABLE TABLET 324 MG PO (21:17)
[2023-03-09] MEDS: SODIUM CHLORIDE 0.9% IV 1,000 ML 999 ML IV CONT (21:17)
[2023-03-09 21:22] VITALS: BP 150/92; PULSE 77; RESP 16; O2SAT 98
[2023-03-09 21:49] LABS: Ethanol < 10 mg/dL (<10); Magnesium 2.3 mg/dL (1.6-2.3)
[2023-03-09 21:53] VITALS: BP 150/94; PULSE 66; RESP 16; O2SAT 99
[2023-03-09 22:28] LABS: Influenza A QL RT-PCR Negative (Negative); Influenza B QL RT-PCR Negative (Negative); RSV RNA, RT-PCR Negative (Negative); SARS-CoV-2 RNA PCR Negative (Negative)
[2023-03-09 22:57] VITALS: BP 146/90; PULSE 69; RESP 15; O2SAT 97
--- NOTE | 2023-03-09 23:15 | PM.IMHP ---
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 He is complaining of numbness and tingling sensations in his right upper extremity and right lower extremity. Primarily his right foot was also feeling slightly weak as well as right lower extremity. He also had some slurred speech with mild confusion. He got concerned and was brought to the ER for evaluation 1 hour after episode started. Code stroke was called, he was worked up with CT scan of the brain and CT of the chest which were negative. His dysarthria resolved after the CT scan of the head and his confusion and weakness resolved as well. When I examined in 4 hours after the accident, all his symptoms had resolved and he was back to normal. He had a similar episode few years ago. Neurology was consulted and he is being placed under observation status for brain MRI and neurology evaluation in am. Review of Systems Review of Systems: 14 systems were reviewed with pertinent positives and negatives per HPI. Except as documented in the HPI/progress notes, all other systems were reviewed and are negative. All systems reviewed & are unremarkable except as noted in HPI and below PMFSH Past Medical History Medical History (Updated 03/10/23 @ 06:15 by Kenn Jha MD) Morbid obesity due to excess calories Social History Social History Smoking status: Never smoker Alcohol intake: never Substance use: never Do You Feel Safe in your Home?: Yes Lack of Transportation: No Lack of Food: Never True Current Housing: I Have Housing Concerned About Future Housing: No Difficulty Paying Gas/Electric Bills: No Difficulty Paying for Meds: No Currently Unemployed: No Education: Associate Degree Difficulty w/ Childcare or Family Care: No Gender identity (if verbalized by the patient): Male Spiritual care concerns: No Meds Home Medications and Allergies Home Medications Medication Instructions Recorded Confirmed Type albuterol sulfate 90 mcg/actuation 2 puff inhalation QID PRN 06/03/03/09/23 Rx aerosol inhaler (ProAir HFA) shortness of breath or wheezing #8.5 grams guaifenesin 600 mg tablet, 600 mg PO Q12H PRN cough #20 tabs 06/04/19 03/09/23 Rx extended release 12 hr (Mucinex) promethazine 6.25 mg-codeine 10 5 ml PO Q6H PRN cough #100 mL 06/04/19 03/09/23 Rx mg/5 mL syrup Allergies Allergy/AdvReac Type Severity Reaction Status Date / Time No Known Allergies Allergy Verified 03/09/23 23:42 Vital Signs Vital Signs - 24 hr 03/09/23 19:09 03/09/23 19:56 03/09/23 20:00 Temperature 37.2 C Pulse Rate 74 76 77 Respiratory Rate 18 16 Blood Pressure 167/98 H 150/92 H Pulse Oximetry 100 98 03/09/23 21:22 03/09/23 21:53 03/09/23 22:57 Temperature Pulse Rate 77 66 69 Respiratory Rate 16 16 15 Blood Pressure 150/92 H 150/94 H 146/90 H Pulse Oximetry 98 99 97 Exam Narrative: PHYSICAL EXAMINATION: Vital signs: Please see the chart General physical exam: Morbidly obese gentleman, pleasant and cooperative, appears in no acute distress Head/eyes: Atraumatic, EOMI, PERRLA ENT: Moist mucous membranes, nasal passages clear Neck: Supple, full range of motion, trachea midline CVS: S1 + S2, regular rate and rhythm, no murmurs Respiratory: Bilaterally fair air entry in both lung parish, mild B/L crackles, symmetric chest expansion, no distress Abdomen: Soft, non-tender, bowel sounds +ve, no organomegaly Extremities: No clubbing, no cyanosis, no edema, no calf tenderness Musculoskeletal: Moves all, adequate range of motion, no muscle spasms Skin: Warm, dry, no jaundice, no cyanosis Neurological: Awake, alert, oriented x 3, cranial nerves II-XI
[2023-03-09 23:30] VITALS: BMI 42.7
--- NOTE | 2023-03-09 23:33 | ADMGEN ---
This patient, Tricia Ruth, was admitted to [address] [place] [address] Room 310-01. Patient/family oriented to hospital policies and general routines including ID bracelet, bed and alarms, visiting hours, pain management, procedures, bathroom and other care routines, personal items, smoking policy, room service/diet, and visiting hours. Information on how to activate the Rapid Response Team has been discussed. Patient/Family are encouraged to report perceived risks to care and to ask questions if they do not understand what they are told or what they should do.
[2023-03-10] VITALS (8 sets, daily range): BP systolic 135–153; BP diastolic 90–98; PULSE 54–79; RESP 18–20; TEMP 36.3–37; O2SAT 95–100
--- NOTE | 2023-03-10 | ECHO_ITS ---
Patient Info Name: Tricia Ruth Age: 52 years : 1970 Gender: Male Ht: 70 in Wt: 297 lbs BSA: 2.64 m2 HR: 80 bpm BP: 135 / 98 mmHg Technical Quality: Fair Exam Date: 03/10/2023 11:02 AM Exam Location: Echo Lab Exam Room: 310 Patient Status: Inpatient Admit Date: 03/09/2023 Staff Ordering Physician: Gisela Dodson MD Office Services Specialist: Krystle Underwood RDCS Attending Provider: Kenn Jha MD Exam Type: CA echo doppler w bubble study Study Info Indications - TIA Complete two-dimensional, color flow and Doppler transthoracic echocardiogram is performed with agitated saline. Contrast/Agitated Saline Contrast/Ag. Saline: Agitated Saline Amount: 20.00 ml Existing IV Access: Yes IV Access Condition: patent with no signs of infiltration Summary 1. Left ventricular chamber dimension is normal. 2. Left ventricular systolic function is normal, estimated at 60-65%. 3. The left ventricular diastolic function is normal. 4. E/e' 8 is minimally elevated. 5. Agitated saline injection with and without valsalva maneuver with significant bubbles shunt to left side cardiac chambers. This is suggestive of patent foramen ovale. 6. Mild atrial septal aneurysm. 7. There is trace tricuspid valve regurgitation. 8. No pulmonary hypertension, estimated pulmonary arterial systolic pressure is 28 mmHg. 9. There is trace pulmonic regurgitation. Left Ventricle E/e' 8 is minimally elevated. Left ventricular chamber dimension is normal. Left ventricular systolic function is normal, estimated at 60-65%. The left ventricular diastolic function is normal. Right Ventricle Right ventricular chamber dimension is normal. Right ventricular systolic function is normal. Left Atria Left atrial chamber dimension is normal. Right Atria Right atrial chamber dimension is normal. Atrial Septum Agitated saline injection with and without valsalva maneuver with significant bubbles shunt to left side cardiac chambers. This is suggestive of patent foramen ovale. Mild atrial septal aneurysm. Interatrial septum not well visualized by 2D and agitated saline imaging. Aortic Valve The aortic valve is trileaflet. There is no aortic valve stenosis. There is no aortic valve regurgitation. Pulmonic Valve There is trace pulmonic regurgitation. Mitral Valve There is no mitral valve stenosis. There is no mitral valve regurgitation. Tricuspid Valve There is trace tricuspid valve regurgitation. No pulmonary hypertension, estimated pulmonary arterial systolic pressure is 28 mmHg. Pericardium/Pleural There is no pericardial effusion. Inferior Vena Cava Normal inferior vena cava with >50% collapse upon inspiration consistent with normal right atrial pressure, 5 mmHg. Aorta The aortic root size at the sinus of Valsalva is normal. Left Ventricular Outflow Tract Name Value Normal LVOT 2D LVOT Diameter 2.1 cm LVOT Doppler LVOT Peak Gradient 3 mmHg LVOT Mean Gradient 2 mmHg LVOT VTI 19 cm LVOT VTI/AV VTI Ratio 0.9 LVOT Stroke Volume 68 m
[2023-03-10] MEDS: SODIUM CHLORIDE 0.9% IV 1,000 ML 125 ML IV CONT (06:01)
[2023-03-10 07:32] LABS: Cholesterol 184 mg/dL (0-200); HDL Direct 31 mg/dL; Triglycerides 93 mg/dL (<150)
[2023-03-10 07:33] LABS: Alanine Aminotransferase 149 U/L (6-50); Albumin Level 3.4 g/dL (3.5-5.1); Alkaline Phosphatase 83 U/L (38-126); Anion Gap 6 mmol/L (8-16); Aspartate Amino Transferase 60 U/L (17-59); Bilirubin,Total 0.4 mg/dL (0.2-1.3); Blood Urea Nitrogen 10 mg/dL (9-20); Calcium 8.3 mg/dL (8.4-10.2); Carbon Dioxide 27 mmol/L (22-30); Chloride 105 mmol/L (98-107); Estimated CRCL calculation 106 ml/min; Estimated Glomerular Filt Rate > 60; Glucose 101 mg/dL (65-110); Sodium 138 mmol/L (137-145)
[2023-03-10 07:34] LABS: Magnesium 2.2 mg/dL (1.6-2.3); Phosphorus 3.9 mg/dL (2.5-4.5)
[2023-03-10 07:43] LABS: LDL Cholesterol Direct 112 mg/dL
--- NOTE | 2023-03-10 09:36 | WPDNEURCNPN ---
Assessment and Plan Assessment and plan (1) TIA (transient ischemic attack): Code(s): G45.9 - Transient cerebral ischemic attack, unspecified Status: Acute (2) Hypertension: Code(s): I10 - Essential (primary) hypertension Status: Acute (3) Morbid obesity due to excess calories: Code(s): E66.01 - Morbid (severe) obesity due to excess calories Status: Acute (4) PFO (patent foramen ovale): Code(s): Q21.12 - Patent foramen ovale Status: Acute Plan Tricia Ruth is a 52 year old male with a history of obesity presenting due to transient R sided paraesthesias, RLE weakness, slurred speech and confusion. Concern for possible TIA. ABCD2 score is 4, meeting criteria for DAPT. No evidence of extracranial or intracranial stenosis. Surface echo with bubble study showed PFO and atrial septal aneurysm. - MRI brain pending - Start Aspirin 81mg daily, with Plavix 75mg daily x 3 weeks - Start statin, goal LDL is <70 - A1c is 6.5 - Given PFO as potential cause of TIA, recommend obtaining LE Doppler and consulting Cardiology Consult date: 03/10/23 Reason for consult: TIA HPI: Tricia Ruth is a 52 year old male with a history of obesity presenting due to concerns for stroke-like symptoms. Patient presented to ED on 03/09 for 1 hr history of paraesthesias in the RUE, RLE, and weakness in the RLE as well as slurred speech and confusion. In the ED his EKG showed sinus rhythm. CT head was negative for acute changes. Blood pressure ranged from 150s-160s systolic. CTA brain/carotid was negative for extracranial or intracranial stenosis. By the time he was evaluated by the ER physician, his symptoms were improving and eventually resolved. Therefore he did not receive tPA. Lab work was unrevealing other than elevated liver enzymes (AST 82 and ALT 182). His LDL is 112. A1c is 6.5. Since admission, blood pressure has been mostly in the 130s systolic. Patient is not a smoker. MRI brain is still pending. Surface echocardiogram done which showed PFO and mild atrial septal aneurysm. Review of Systems Review of Systems: All systems reviewed & are unremarkable except as noted in HPI and below PMFSH Past Medical History Medical History Morbid obesity due to excess calories Social History Social History Smoking status: Never smoker Alcohol intake: never Substance use: never Do You Feel Safe in your Home?: Yes Lack of Transportation: No Lack of Food: Never True Current Housing: I Have Housing Concerned About Future Housing: No Difficulty Paying Gas/Electric Bills: No Difficulty Paying for Meds: No Currently Unemployed: No Education: Associate Degree Difficulty w/ Childcare or Family Care: No Gender identity (if verbalized by the patient): Male Spiritual care concerns: No Meds Home Medications and Allergies Home Medications Medication Instructions Recorded Confirmed Type albuterol sulfate 90 mcg/actuation 2 puff inhalation QID PRN 06/04/19 03/09/23 Rx aerosol inhaler (ProAir HFA) shortness of breath or wheezing #8.5 grams guaifenesin 600 mg tablet, 600 mg PO Q12H PRN cough #20 tabs 06/04/19 03/09/23 Rx extended release 12 hr (Mucinex) promethazine 6.25 mg-codeine 10 5 ml PO Q6H PRN cough #100 mL 06/04/19 03/09/23 Rx mg/5 mL syrup Allergies Allergy/AdvReac Type Severity Reaction Status Date / Time No Known Allergies Allergy Verified 03/09/23 23:42 Vital Signs Vital Signs - 24 hr 03/09/23 19:09 03/09/23 19:56 03/09/23 20:00 Temperature 37.2 C Pulse Rate 74 76 77 Respiratory Rate 18 16 Blood Pressure 167/98 H 150/92 H Pulse Oximetry 100 98 Oxygen Delivery 03/09/23 21:22 03/09/23 21:53 03/09/23 22:57 Temperature Pulse Rate 77 66 69 Respiratory Rate 16 16 15 Blood Pressure 150/92 H 150/94 H 146/90 H Pulse O
[2023-03-10 10:39] LABS: Hemoglobin A1C 6.5 % (<5.7)
--- NOTE | 2023-03-10 16:01 | PM.IMPN ---
Progress Note: A&P Assessment and Plan (1) PFO (patent foramen ovale): Code(s): Q21.12 - Patent foramen ovale Status: Acute (2) Hypertension: Code(s): I10 - Essential (primary) hypertension Status: Acute (3) TIA (transient ischemic attack): Code(s): G45.9 - Transient cerebral ischemic attack, unspecified Status: Acute (4) Morbid obesity due to excess calories: Code(s): E66.01 - Morbid (severe) obesity due to excess calories Status: Acute (5) Stroke-like symptoms: Code(s): R29.90 - Unspecified symptoms and signs involving the nervous system Status: Acute (6) Elevated liver transaminase level: Code(s): R74.01 - Elevation of levels of liver transaminase levels Status: Acute (7) Diabetes: Code(s): E11.9 - Type 2 diabetes mellitus without complications Status: Acute Plan 52M w/ PMH obesity and TIA presents with stroke like symptoms. The pt complained of right extremity numbness and tingling along with right foot drop. He also had slurred speech and mild confusion. Admitted on 03/09/23 # TIA - recurrent. symptoms have resolved since admission. head and neck CTA w/o stenosis. MRI brain and brainstem w/o acute abnormalities. pending dopplers of LE's. surface echo with atrial atrial septal aneurysm and PFO. neurology consulted, recs appreciated - cont asa 81mg po qday, plavix 75mg po daily for 3 weeks - atorvastatin 40mg po qhs started - treat diabetes and HTN, not a smoker, denies alcohol use - with stroke seemingly cryptogenic, patient would benefit from cardiology consult in light of PFO. consultation pending, we appreciate their assistance. # obesity - dietitian consulted. heavily counseled on lifestyle modification # HTN - undiagnosed but likely. start lisinopril 5mg po qday in light of new dx diabetes. monitor renal function # NIDDM - new dx, HBA1c 6.5. counseled. start accuchecks. start metformin low does and consult hematology nurse educator. follow up as outpatient. # PFO - pending dopplers LEs. - cardiology consult # hepatitis - unclear chronicity. patient denies alcohol or IV drug use - pending liver US and infectious and autoimmune hepatitis panel. RIBERA? FEN: diabetic cardiac diet GI prophylaxis: not indicated DVT prophylaxis: encourage ambulation Lines: pIV Code Status: Full Code Dispo: stable More than 35 minutes spent on chart review, patient interaction and assessment and plan. Subjective Date/time seen: 03/10/23 16:01 Interval history: naoe. the patient's is at bedside. she reports he is non compliant with follow up . the patient's symptoms have completely resolved. this happened in the past many years ago and he was hospitalized but refused brain MRI at that time. Review of Systems Review of Systems: All systems reviewed & are unremarkable except as noted in HPI and below (subjective) Exam Const: General: comfortable and no acute distress Other: obese Eyes: Pupils: Equal, round and reactive pupils present Neck: Neck: supple Resp: Effort & Inspection: normal respiratory effort Auscultation: clear to auscultation bilaterally Cardio: Rate: regular rate Rhythm: regular rhythm Heart sounds: no gallops, no murmurs and no rubs GI: GI Palp: Yes Soft to palpation and No Tenderness to palpation present (GI) Neuro: Speech: normal speech Motor exam (neuro): 5/5 motor strength present throughout Sensory Exam: normal sensation Extrem: General: no edema Objective Data Vital Signs Vital Signs: Vital Signs - 24 hr 03/09/23 19:09 03/09/23 19:56 03/09/23 20:00 Temperature 99 F Pulse Rate 74 76 77 Respiratory Rate 18 16 Blood Pressure 167/98 H 150/92 H Pulse Oximetry 100 98 Oxygen Delivery 03/09/23 21:22 03/09/23 21:53 03/09/23 22:57 Temperature Pulse Rate 77 66 69 Respiratory Rate 16 16 15 Blood Pressure 150/92 H 150/94 H 146/90 H Pulse Oximetry 98 99 97 Oxygen Delivery
[2023-03-10] MEDS: metFORMIN HCL 500 MG TABLET PO (17:30)
[2023-03-10] MEDS: ATORVASTATIN 40 MG TABLET PO (17:30)
[2023-03-10] MEDS: ASPIRIN 81 MG ENTERIC TABLET PO (17:30)
[2023-03-10] MEDS: CLOPIDOGREL BISULFATE 75 MG TABLET PO (17:30)
[2023-03-10] MEDS: amLODIPine BESYLATE 5 MG TABLET PO (17:30)
[2023-03-10 17:33] LABS: Glucose Point of Care 104 mg/dl (65-105)
[2023-03-10 21:10] LABS: Glucose Point of Care 110 mg/dl (65-105)
[2023-03-11] VITALS (16 sets, daily range): BP systolic 114–193; BP diastolic 70–128; PULSE 65–98; RESP 15–24; TEMP 36.2–36.3; O2SAT 93–100; BMI 42.7
[2023-03-11 06:35] LABS: Basophils Percent Auto 0.4 % (0.2-1.2); Eosinophils Absolute Auto 0.1 K/mm3 (0-0.3); Eosinophils Percent Auto 2.2 % (0-4.4); Hematocrit 45.5 % (42.0-52.0); Hemoglobin 14.4 g/dL (14.0-18.0); Immature Granulocyte Absolute 0.03 K/mm3 (0.00-0.031); Immature Granulocyte Percent A 0.7 % (0-0.5); Lymphocytes Absolute Auto 1.58 K/mm3 (0.9-3.2); Lymphocytes Percent Auto 35.3 % (18.3-44.2); Mean Corpuscular HGB Conc 31.6 g/dl (32-36); Mean Corpuscular Volume 85.4 fl (80-100); Monocytes Absolute Auto 0.6 K/mm3 (0.1-0.6); Monocytes Percent Auto 12.5 % (2.6-8.5); Neutrophils Absolute Auto 2.2 K/mm3 (1.3-6.7); Neutrophils Percent Auto 48.9 % (45.5-73.1); Platelet Count Result 354 k/mm3 (150-375); Red Blood Count 5.33 M/mm3 (4.6-6.20); Red Cell Distribution Width 13.7 % (11.5-14.5); White Blood Count 4.5 K/mm3 (4.5-10.0)
[2023-03-11 06:47] LABS: Anion Gap 8 mmol/L (8-16); Blood Urea Nitrogen 10 mg/dL (9-20); Carbon Dioxide 25 mmol/L (22-30); Chloride 105 mmol/L (98-107); Estimated CRCL calculation 106 ml/min; Estimated Glomerular Filt Rate > 60; Potassium 4.2 mmol/L (3.4-5.0); Sodium 138 mmol/L (137-145)
[2023-03-11 06:48] LABS: Alanine Aminotransferase 136 U/L (6-50); Albumin Level 3.9 g/dL (3.5-5.1); Alkaline Phosphatase 81 U/L (38-126); Aspartate Amino Transferase 49 U/L (17-59); Bilirubin,Total 0.5 mg/dL (0.2-1.3); Calcium 8.8 mg/dL (8.4-10.2); Glucose 96 mg/dL (65-110); Magnesium 2.4 mg/dL (1.6-2.3)
[2023-03-11 07:10] LABS: Hepatitis B Surface Antigen Negative (Negative)
[2023-03-11 07:15] LABS: HAV RESULT Negative (Negative); Hepatitis B Core IgM Result Negative (Negative)
[2023-03-11 07:27] LABS: Hepatitis C Virus Antibody Negative (Negative)
[2023-03-11 08:30] LABS: Glucose Point of Care 90 mg/dl (65-105)
--- NOTE | 2023-03-11 09:08 | PC.NURSE ---
patient refusing medications this morning r/t npo status. He would like to talk to the doctor before taking medications.
--- NOTE | 2023-03-11 09:44 | WPDNEUROPN ---
Progress Note: A&P Assessment and Plan (1) TIA (transient ischemic attack): Code(s): G45.9 - Transient cerebral ischemic attack, unspecified Status: Acute (2) Morbid obesity due to excess calories: Code(s): E66.01 - Morbid (severe) obesity due to excess calories Status: Acute (3) Hypertension: Code(s): I10 - Essential (primary) hypertension Status: Acute (4) PFO (patent foramen ovale): Code(s): Q21.12 - Patent foramen ovale Status: Acute (5) Diabetes: Code(s): E11.9 - Type 2 diabetes mellitus without complications Status: Acute Plan Tricia Ruth is a 52 year old male with a history of obesity presenting due to transient R sided paraesthesias, RLE weakness, slurred speech and confusion. MRI brain was negative for acute stroke. Concern for TIA. ABCD2 score is 4, meeting criteria for DAPT. No evidence of extracranial or intracranial stenosis. Surface echo with bubble study showed PFO and atrial septal aneurysm which is concerning for possible cardioembolic cause of symptoms. - Start Aspirin 81mg daily, with Plavix 75mg daily x 3 weeks, followed by aspirin monotherapy - Started on Lipitor 40mg daily, goal LDL is <70 - A1c is 6.5 - Given PFO as potential cause of TIA, recommend consulting Cardiology Subjective Date/time seen: 03/11/23 09:44 Interval history: Tricia Ruth is a 52 year old male with a history of obesity presenting due to concerns for stroke-like symptoms. Patient presented to ED on 03/09 for 1 hr history of paraesthesias in the RUE, RLE, and weakness in the RLE as well as slurred speech and confusion. In the ED his EKG showed sinus rhythm. CT head was negative for acute changes. Blood pressure ranged from 150s-160s systolic. CTA brain/carotid was negative for extracranial or intracranial stenosis. By the time he was evaluated by the ER physician, his symptoms were improving and eventually resolved. Therefore he did not receive tPA. Lab work was unrevealing other than elevated liver enzymes (AST 82 and ALT 182). His LDL is 112. A1c is 6.5. Since admission, blood pressure has been mostly in the 130-150s systolic. Patient is not a smoker. MRI brain was negative for acute stroke. Surface echocardiogram done which showed PFO and mild atrial septal aneurysm. Lower extremity studies were negative for DVT. Review of Systems Review of Systems: All systems reviewed & are unremarkable except as noted in HPI and below Exam Const: General: comfortable and no acute distress Eyes: Pupils: Equal, round and reactive pupils present EOM: EOMs intact bilaterally Resp: Effort & Inspection: normal respiratory effort Skin: General skin exam: normal color Neuro: Other: Pupils equal and reactive bilaterally, EOMI, face symmetric, facial sensation intact, tongue protrudes midline, palate midline. Shoulder shrug normal. Strength 5/5 throughout. Sensation intact throughout. Language comprehension and fluency intact. Gait deferred. Extrem: General: normal to inspection Psych: Mental Status: mental status grossly normal Affect: normal affect Objective Data Vital Signs Vital Signs: Vital Signs - 24 hr 03/10/23 12:00 03/10/23 11:55 03/10/23 16:00 Temperature 36.6 C 36.5 C Pulse Rate 69 75 75 Respiratory Rate 20 18 Blood Pressure 135/98 H 140/90 Pulse Oximetry 100 98 Oxygen Delivery 03/10/23 20:40 03/10/23 20:50 03/10/23 20:00 Temperature 37.0 C Pulse Rate 79 79 Respiratory Rate 18 Blood Pressure 153/94 H Pulse Oximetry 95 Oxygen Delivery Room Air 03/11/23 00:44 03/11/23 00:31 03/11/23 04:00 Temperature 36.3 C L Pulse Rate 66 65 70 Respiratory Rate 20 Blood Pressure 133/96 H Pulse Oximetry 99 Oxygen Delivery 03/11/23 05:00 Temperature 36.2 C L Pulse Rate 79 Respiratory Rate 20 Blood Pressure 114/70 Pulse Oximetry 98 Oxygen Delivery Intake/Output Intake/Output: Intake & Output 03/08
--- NOTE | 2023-03-11 13:36 | PM.CNCAR ---
Assessment and Plan Assessment and plan (1) TIA (transient ischemic attack): Code(s): G45.9 - Transient cerebral ischemic attack, unspecified Status: Acute Assessment and Plan: Patient presents to the hospital with TIA like symptoms. He has had a previous episode about 12 years ago. He has not been on any routine maintenance anti-platelet or anticoagulant therapy. Source of TIA could be related to the PFO. Will further investigate for any evidence of left atrial appendage thrombus and for further delineation of his PFO via a transesophageal echocardiogram. I did talk to her the risks benefits alternatives a verbalized understanding and is in agreement. He has been put on anti-platelet agents which I am in agreement with. I will refer him as an outpatient to [facility] for consideration of PFO closure especially given the fact that this is his 2nd event. (2) Hypertension: Code(s): I10 - Essential (primary) hypertension Status: Acute Assessment and Plan: Above goal. (3) PFO (patent foramen ovale): Code(s): Q21.12 - Patent foramen ovale Status: Acute Assessment and Plan: As detailed above. WENDIE to be performed (4) Diabetes: Code(s): E11.9 - Type 2 diabetes mellitus without complications Status: Acute Assessment and Plan: per hospitalist (5) Elevated liver transaminase level: Code(s): R74.01 - Elevation of levels of liver transaminase levels Status: Acute Assessment and Plan: workup per hospitalist and PCP History of Present Illness History of Present Illness Consult date/time: 03/11/23 13:36 Requesting physician: Brigida Alvares MD Consult reason: Other ( CVA/TIA/PFO) Reason For Visit: Stroke Like Symptoms Narrative: reason for consultation: TA/ PFO Date of service 03/11/2023 Requesting provider: Dr. Alvares History patient is a 52-year-old male who does have a history of TIA dating back to about 12 years ago. He does not recall having an echocardiogram at that time. He believes it that evaluation was performed in [place]. Regardless he has not had any routine follow-up since that time. He has not been on any medications routinely either. 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 He also had some aphasia. Came to the hospital for further evaluation. Over a period of an hour so his symptoms did subside and normalized. An echocardiogram was performed which did show a PFO and an aneurysmal atrial septum. Cardiology consultation was therefore requested. Patient has had a lower extremity venous Doppler to evaluate for source of paradoxical embolism. This was negative. From a cardiac perspective he feels fine and denies any chest pain, shortness of breath, syncope, presyncope, paroxysmal nocturnal dyspnea, orthopnea, edema or palpitations. Review of Systems Review of Systems: All systems reviewed & are unremarkable except as noted in HPI and below Constitutional: Constitutional: Denies body ache(s) Eyes: Eyes: Denies blurry vision ENT: Reports Normal hearing present Cardiovascular: Cardiovascular: Denies chest pain Respiratory: Respiratory: Denies chest congestion Gastrointestinal: Gastrointestinal: Denies abdominal pain Genitourinary: Genitourinary: Denies hematuria Musculoskeletal: Musculoskeletal: Denies back pain Integumentary/Breasts: Skin/Breast: Denies erythema Neurologic: Reports Abnormal speech present and Reports numbness Psychiatric: Psychiatric: Denies behavioral changes Endocrine: Endocrine: Denies excessive sweating Hematologic/Lymphatic: Hematologic/Lymphatic: Denies easy bleeding Allergic/Immunologic: Allergic/Immunologic: Denies GI upset with certain foods PMFSH Past Medical History Medical History (Updated 03/10/23 @ 16:02 by Christel
--- NOTE | 2023-03-11 13:42 | PC.NURSE ---
patient to card lab for WENDIE per bed
--- NOTE | 2023-03-11 13:54 | WPDMODSED ---
Moderate Sedation Note-Pt Data Patient Data Diagnosis: T IA/PFO Present Complaint: TIA/PFO Procedure to be performed/Plan: 1. Transesophageal echocardiogram with color-flow pulse-wave Doppler 2. Agitated saline study 3. Moderate sedation Allergies Allergy/AdvReac Type Severity Reaction Status Date / Time No Known Allergies Allergy Verified 03/09/23 23:42 Home Medications Medication Instructions Recorded Confirmed Type albuterol sulfate 90 mcg/actuation 2 puff inhalation QID PRN 06/04/19 03/09/23 Rx aerosol inhaler (ProAir HFA) shortness of breath or wheezing #8.5 grams guaifenesin 600 mg tablet, 600 mg PO Q12H PRN cough #20 tabs 06/04/19 03/09/23 Rx extended release 12 hr (Mucinex) promethazine 6.25 mg-codeine 10 5 ml PO Q6H PRN cough #100 mL 06/04/19 03/09/23 Rx mg/5 mL syrup Current Medications: Active Medications Acetaminophen (Acetaminophen 325 Mg Tablet) 650 mg PO Q4H PRN PRN Reason: Mild Pain (1-3) or Fever Al Hydrox/Mg Hydrox/Simethicone (Mag Hydrox/Al Hydrox/Simeth 30 Ml Udc) 30 ml PO QID PRN PRN Reason: Dyspepsia Albuterol (Albuterol Sulfate (*Sp) Aerosol 1 Puff) 2 puff INHALATION QIDRT PRN PRN Reason: shortness of breath or wheezin Amlodipine Besylate (Amlodipine Besylate 5 Mg Tablet) 5 mg PO [facility] Last Admin: 03/10/23 17:30 Dose: 5 mg Aspirin (Aspirin 81 Mg Enteric Tablet) 81 mg PO [facility] Last Admin: 03/10/23 17:30 Dose: 81 mg Atorvastatin Calcium (Atorvastatin 40 Mg Tablet) 40 mg PO DAILY [facility] Last Admin: 03/10/23 17:30 Dose: 40 mg Clopidogrel Bisulfate (Clopidogrel Bisulfate 75 Mg Tablet) 75 mg PO [facility] Last Admin: 03/10/23 17:30 Dose: 75 mg Dextrose (Dextrose 50% 25 Gm/50 Ml Syringe) 12.5 gm IV PUSH PRN PRN; Protocol PRN Reason: Hypoglycemia Glucagon (Glucagon For Inj 1 Mg Vial) 1 mg IM PRN PRN; Protocol PRN Reason: Hypoglycemia Glucose (Glucose Oral Gel 15 Gm Of Glucse In 37.5 Gm Tube) 15 gm PO PRN PRN; Protocol PRN Reason: Hypoglycemia Guaifenesin (Guaifenesin 12 Hr 600 Mg Tabcr) 600 mg PO Q12H PRN PRN Reason: cough Dextrose (Dextrose 5% 1,000 Ml) 1,000 mls @ 100 mls/hr IVPB PRN PRN; Protocol PRN Reason: Hypoglycemia Insulin Aspart (Insulin Aspart (*Bkc) 100 Units/Ml) 2 - 5 units SUB-Q TIDWM KEVIN; Protocol Last Admin: 03/11/23 13:05 Dose: Not Given Insulin Aspart (Insulin Aspart (*Bkc) 100 Units/Ml) 1 - 2 units SUB-Q HS KEVIN; Protocol Last Admin: 03/10/23 21:06 Dose: Not Given Metformin HCl (Metformin Hcl 500 Mg Tablet) 500 mg PO DAILY@0800 KEVIN Last Admin: 03/11/23 08:47 Dose: Not Given Perflutren Lipid Microsphere (Perflutren Lipid Microspheres 1.5 Ml Vial Diluted To 10 Ml Total Volume) 0 ml IV PUSH ONCE PRN; Protocol PRN Reason: adequate visualization Stop: 03/13/23 09:43 Sedation/Anesthesia: No previous sedation/anesthesia problems (including family history). [facility] Past Medical History Medical History Diabetes Morbid obesity due to excess calories Social History Social History Smoking status: Never smoker Alcohol intake: never Substance use: never Do You Feel Safe in your Home?: Yes Lack of Transportation: No Lack of Food: Never True Current Housing: I Have Housing Concerned About Future Housing: No Difficulty Paying Gas/Electric Bills: No Difficulty Paying for Meds: No Currently Unemployed: No Education: Associate Degree Difficulty w/ Childcare or Family Care: No Gender identity (if verbalized by the patient): Male Spiritual care concerns: No Mod Sed Physical Exam Physical Exam Pre Procedural Exam: Normal: Appearance, Eyes, Ears, Nose, Neck, Throat, Airway, Lungs, Heart Size, Heart Rate, Heart Rhythm, Neuro Exam, Abdomen, Extremities and Skin Hours since solid foods: 12 Hours since liquid intake: 12 Mallampati Classification: class II Internal Medicine - PN:
[2023-03-11 14:07] LABS: Glucose Point of Care 77 mg/dl (65-105)
--- NOTE | 2023-03-11 14:23 | WPDTEECHO ---
WENDIE TransEsophageal Echocardiogram Date of procedure: 03/11/23 Procedure Type: transesophageal echocardiogram with color-flow pulse-wave Doppler Agitated saline study Moderate sedation Diagnosis: TIA/PFO Indications: TIA/PFO Image Quality: good Findings: after discussing the risks, benefits alternatives of procedure patient agreeable via verbal and written informed consent. Risks discussed included esophageal rupture or perforation, , adverse reaction to anesthesia, bleeding, pain, infection, sore throat. After establishing continuous telemetry monitoring and pulse serial blood pressure assessments and pulse oxygenation time-out was taken procedure was started Procedure start time 2:03 p.m. Procedure stop time 2:21 p.m. Blood loss: None Complications: None Sedation: A total of 5 mg of Versed and 100 mcg of fentanyl were given in divided dosages for moderate sedation. 15 cc of viscous lidocaine gargle and swallow was also administered as well as 1 Hurricaine spray. Medications were administered patient was monitored by Janey Bowne RN findings: Normal left ventricular size and function ejection fraction 70 75%. Mild left ventricle hypertrophy is noted. Normal mitral valve with mild mitral regurgitation. Normal tricuspid valve with mild tricuspid regurgitation. The pulmonic valve is normal with mild pulmonic insufficiency. The aortic valve is trileaflet and is normal without significant aortic insufficiency. Mild aortic root dilatation measured at 4.0 cm at the sinus of Valsalva. No pericardial effusion. Left atrial appendage is normal with pulse-wave velocities of 60 cm per 2nd. Atrial septum is thin, hypermobile with color flow and agitated saline evidence of [id number] shunting consistent with PFO. Conclusions: 1. Normal left ventricular size and function ejection fraction 70-75%, mild LVH 2. Mild mitral, tricuspid and pulmonic insufficiency 3. Mild aortic root dilatation 4. Hypermobile atrial septum with color flow and agitated saline evidence of shunting consistent with patent foramen ovale. 5. Moderate sedation Plan and recommendation: Since this is his 2nd TIA event, my plan and recommendation is to refer him to [facility] for consideration of PFO closure. he has not been taking any anti-platelet agent either TIA event however he is at significant risk of future event. In the meantime he will be treated with anti-platelet agents until evaluation for PFO closure
--- NOTE | 2023-03-11 15:11 | PC.NURSE ---
patient returning to floor from WENDIE
[2023-03-11] MEDS: ASPIRIN 81 MG ENTERIC TABLET PO (15:26)
[2023-03-11] MEDS: ATORVASTATIN 40 MG TABLET PO (15:26)
[2023-03-11] MEDS: amLODIPine BESYLATE 5 MG TABLET PO (15:26)
[2023-03-11] MEDS: CLOPIDOGREL BISULFATE 75 MG TABLET PO (15:26)
--- NOTE | 2023-03-11 15:59 | PM.DS ---
DS: Admitting Diagnosis Discharge Date 03/11/23 Admitting Diagnosis TIA symptoms DS: Discharge Diagnosis Discharge Diagnosis (1) PFO (patent foramen ovale): Code(s): Q21.12 - Patent foramen ovale Status: Acute (2) Diabetes: Code(s): E11.9 - Type 2 diabetes mellitus without complications Status: Acute (3) Hypertension: Code(s): I10 - Essential (primary) hypertension Status: Acute (4) TIA (transient ischemic attack): Code(s): G45.9 - Transient cerebral ischemic attack, unspecified Status: Acute (5) Morbid obesity due to excess calories: Code(s): E66.01 - Morbid (severe) obesity due to excess calories Status: Acute (6) Elevated liver transaminase level: Code(s): R74.01 - Elevation of levels of liver transaminase levels Status: Acute DS: Summary Hospital Course Hospital Course: 52M w/ PMH obesity and TIA presents with stroke like symptoms. The pt complained of right extremity numbness and tingling along with right foot drop. He also had slurred speech and mild confusion. Upon admission to [facility] he was at baseline with a normal physical exam with the exception of obesity. His symptoms lasted approximately one hour. Neurology was consulted, CTA head and neck and MRI brain brainstem w/ and w/o contrast did not reveal acute abnormalities or concerning findings. LE dopplers negative. Surface echo revealed atrial septal aneurysm and PFO. Cardiology consulted and WENDIE performed demonstrating 1. Normal left ventricular size and function ejection fraction 70-75%, mild LVH 2.? Mild mitral, tricuspid and pulmonic insufficiency 3. Mild aortic root dilatation 4.? Hypermobile atrial septum with color flow and agitated saline evidence of shunting consistent with patent foramen ovale. 5. Moderate sedation He is az'ed home in stable condition on 03/11/23. He and his educated on obesity, diabetes, HTN, HLD, strokes and their mgmt and prevention. They were in complete understanding and agreement with the following plan: Follow up outpatient for PFO closure. ASA 81mg po qday. Plavix 75mg po qday for 3 weeks. Lipitor 40mg daily. lifestyle modification Patient had elevated blood pressure, he likely has chronic hypertension and was started on amlodipine ( did not want [id number] because of its side effects.) HBA1c 6.5% diagnosing him with new onset diabetes mellitus. Metformin started. Accuchecks prescribed. He will follow up with glucose and blood pressure log and bring them to his PCP. In addition, he had elevated AST/ALT. Although they downtrended over the 3 day course of his admission. He denies alcohol use. Viral hepatitis screen negative. Liver ultrasound without abnormality. Possibly RIBERA, he is to follow up with PCP on this matter as well. Mr. Ruth was full code during his admission. More than 30 minutes spent on discharge planning and documentation. Time Spent with Patient Time attestation: Total time spent providing and/or coordinating discharge services: Exam Const: General: cooperative and no acute distress Resp: Effort & Inspection: normal respiratory effort Auscultation: clear to auscultation bilaterally Cardio: Rate: regular rate Rhythm: regular rhythm Heart sounds: S1 normal heart sound present and S2 normal heart sound present GI: GI Palp: No abdominal tenderness Auscultation: normal bowel sounds DS: Data Data Completed and Pending Labs on day of discharge: Labs from last 24 hours 03/11/23 03/11/23 03/11/23 12:41 07:45 05:38 WBC 4.5 RBC 5.33 Hgb 14.4 Hct 45.5 MCV 85.4 MCH 27.0 MCHC 31.6 L RDW 13.7 Plt Count 354 MPV 9.0 Immature Gran % (Auto) 0.7 H Neut % (Auto) 48.9 Lymph % (Auto) 35.3 Burke % (Auto) 12.5 H Eos % (Auto) 2.2 Baso % (Auto) 0.4 Lymph # (Auto) 1.58 Burke # (Auto) 0.6 Eos # (Auto) 0.1 Baso # (Auto) 0.0 Abs Immat Gran (auto) 0.03 Absolute Tomeka
== END 2023-03-11 16:23 | disposition home or self-care (01) ==
LOC: ANHED 22:21 → ANH3MEDSUR 23:07
PROVIDERS: Internal Medicine Cardiovascular Disease; Student in an Organized Health Care Education/Training Program; Admitting Provider Family Medicine; Emergency Provider Student in an Organized Health Care Education/Training Program; PCP Nurse Practitioner; Visit Provider General Practice
PROC: (CPT 93312; principal; 2023-03-11 13:45)
DX: G45.9 Transient cerebral ischemic attack, unspecified (principal); E11.9 Type 2 diabetes mellitus without complications; I10 Essential (primary) hypertension; Q21.12 Patent foramen ovale; E66.01 Morbid (severe) obesity due to excess calories; Z68.41 Body mass index [BMI] 40.0-44.9, adult; R74.01 Elevation of levels of liver transaminase levels; K80.20 Calculus of gallbladder without cholecystitis without obstruction; I08.1 Rheumatic disorders of both mitral and tricuspid valves; R06.02 Shortness of breath; Z20.822 Contact with and (suspected) exposure to COVID-19; Z86.73 Personal history of transient ischemic attack (TIA), and cerebral infarction without residual deficits; Z79.51 Long term (current) use of inhaled steroids; Z79.899 Other long term (current) drug therapy
CPT/HCPCS: 36415; 70450; 70460; 70496; 70498; 70553; 71045; 76705; 80053; 80061; 80074; 80307; 81003; 82607; 82948; 83036; 83735; 84100; 84443; 84484; 85025; 85610; 85730; 87637; 93005; 93306; 93312; 93320; 93325; 93970; 96360; 96375; 99285; A9270; A9577; G0378; J2250; J3010; J7030; J7040; Q9967

== ENCOUNTER 2023-04-21 07:57 | Outpatient (CLI) | payer OTHER, SELFPAY ==
--- NOTE | ~2023-04-21 | US_ITS ---
EXAMINATION: US carotid duplex BI DATE: 04/21/2023 08:38 INDICATION: Transient ischemic attack. TECHNIQUE: Grayscale, color Doppler, and pulsed Doppler images of the cervical carotid arteries were obtained. The degree of vessel stenosis is placed in one of the following categories: normal, <50%, 5 0-69%, >=70% but less than near-occlusion, near-occlusion, or total occlusion. Note that percent sten osis relative to normal distal artery lumen diameter is indirectly measured from velocity measurement s as described by José Luis, et al. Radiology 2003; 229:340-346. COMPARISON: CTA 03/09/23 FINDINGS: RIGHT: The right common carotid artery (CCA) peak systolic velocity (PSV) is 111 cm/s. The right internal ca rotid artery (ICA) PSV is 43 cm/s. The right ICA end-diastolic velocity (EDV) is 16 cm/s. The right I CA/CCA PSV ratio is 0.4. Grayscale and color Doppler images yield an estimate of 0% diameter reductio n from plaque in the ICA. There is antegrade flow in the right vertebral artery. LEFT: The left CCA PSV is 141 cm/s. The left ICA PSV is 72 cm/s. The left ICA EDV is 24 cm/s. The left ICA/ CCA PSV ratio is 0.5. Grayscale and color Doppler images yield an estimate of 0% diameter reduction f rom plaque in the ICA. There is antegrade flow in the left vertebral artery. IMPRESSION: 1. Normal internal carotid arteries. Reviewed, dictated and finalized at location A. [employer]ER
== END 2023-04-21 07:58 | disposition home or self-care (01) ==
PROVIDERS: PCP Nurse Practitioner; Visit Provider Internal Medicine Cardiovascular Disease
DX: Q21.12 Patent foramen ovale (principal); G45.9 Transient cerebral ischemic attack, unspecified
CPT/HCPCS: 93880

== ENCOUNTER 2024-01-19 01:36 | Day surgery (SDC) | payer OTHER, SELFPAY ==
[2024-01-12 09:28] VITALS: BMI 43.2
[2024-01-19 07:08] VITALS: BP 142/94; PULSE 85; RESP 16; TEMP 36.1; O2SAT 97; BMI 45.0
[2024-01-19] MEDS: LACTATED RINGERS 1,000 ML 150 ML IV CONT (07:25)
--- NOTE | 2024-01-19 07:28 | PM.HPGS ---
History of Present Illness History of Present Illness Consent: Risks, benefits, and alternatives have been discussed and questions answered. Patient agrees to proceed with procedure. Chief complaint: Neoplasm screening Narrative: Tricia Ruth is a 53 year old male here for first screening colonoscopy Review of Systems Review of Systems: All systems reviewed & are unremarkable except as noted in HPI and below PMFSH Past Medical History Medical History (Updated 01/19/24 @ 07:28 by Ronnie Dawson MD) Colon cancer screening Diabetes Morbid obesity due to excess calories Social History Social History Smoking status: Never smoker Alcohol intake: never Substance use: never Substance use type: does not use Do You Feel Safe in your Home?: Yes Lack of Transportation: No Lack of Food: Never True Current Housing: I Have Housing Concerned About Future Housing: No Difficulty Paying Gas/Electric Bills: No Difficulty Paying for Meds: No Currently Unemployed: No Education: Associate Degree Difficulty w/ Childcare or Family Care: No Living arrangements: with family Gender identity (if verbalized by the patient): Male Spiritual care concerns: No Meds Home Medications and Allergies Home Medications Medication Instructions Recorded Confirmed Type amlodipine 5 mg tablet (Norvasc) 5 mg PO QAM #90 tabs 03/11/23 01/19/24 Rx aspirin 81 mg tablet,delayed 81 mg PO QAM #90 tabs 03/11/23 01/19/24 Rx release atorvastatin 40 mg tablet 40 mg PO DAILY #90 tabs 03/11/23 01/19/24 Rx blood sugar diagnostic (Accu-Chek #100 ea 03/11/23 Rx Guide test strips) blood-glucose meter (Accu-Chek #1 ea 03/11/23 Rx Guide Glucose Meter) lancing device with lancets kit #1 ea 03/11/23 Rx (Accu-Chek FastClix Lancing Device kit) metformin 500 mg tablet,extended 500 mg PO DAILY #90 tabs 03/11/23 01/19/24 Rx release 24 hr Allergies Allergy/AdvReac Type Severity Reaction Status Date / Time No Known Allergies Allergy Verified 01/19/24 07:07 Vital Signs Vital Signs - 24 hr 01/19/24 07:08 Temperature 97 F L Pulse Rate 85 Respiratory Rate 16 Blood Pressure 142/94 H Pulse Oximetry 97 Oxygen Delivery Room Air Exam Const: General: comfortable and no acute distress HENMT: Face/Nose/Sinus: Normal nares present Eyes: General: appearance normal, both eyes and all related structures Neck: Neck: no JVD Resp: Auscultation: clear to auscultation bilaterally Cardio: Rate: regular rate Rhythm: regular rhythm GI: Inspection: non-distended GI Palp: Yes Soft to palpation Skin: General skin exam: normal color Neuro: General: gait normal Speech: normal speech Extrem: General: normal to inspection Psych: Mental Status: mental status grossly normal Assessment and Plan Assessment and plan (1) Colon cancer screening: Code(s): Z12.11 - Encounter for screening for malignant neoplasm of colon Status: Acute Assessment and Plan: colonoscopy
[2024-01-19 07:38] LABS: Glucose Point of Care 104 mg/dl (65-105)
--- NOTE | 2024-01-19 07:53 | P.PNAN_ITS ---
Anes - Initial Pre Proc Eval Procedure: Operation Date: 01/19/24 07:30 Proposed Procedures p Screening Colonoscopy - Ronnie Dawson MD Date/Time: 01/19/24 07:53 Surgeon: Ronnie Dawson MD Pre Op Diagnosis: Neoplasm screening Patient Data Age: 53 Gender: M Height: 1.78 m Weight: 142.3 kg Last Vital Signs Temp 36.1 C L 01/19/24 07:08 Pulse 85 01/19/24 07:08 Resp 16 01/19/24 07:08 BP 142/94 H 01/19/24 07:08 Pulse Ox 97 01/19/24 07:08 O2 Del Method Room Air 01/19/24 07:08 Allergies Allergy/AdvReac Type Severity Reaction Status Date / Time No Known Allergies Allergy Verified 01/19/24 07:07 Home Medications Medication Instructions Recorded Confirmed Type amlodipine 5 mg tablet (Norvasc) 5 mg PO QAM #90 tabs 03/11/23 01/19/24 Rx aspirin 81 mg tablet,delayed 81 mg PO QAM #90 tabs 03/11/23 01/19/24 Rx release atorvastatin 40 mg tablet 40 mg PO DAILY #90 tabs 03/11/23 01/19/24 Rx blood sugar diagnostic (Accu-Chek #100 ea 03/11/23 Rx Guide test strips) blood-glucose meter (Accu-Chek #1 ea 03/11/23 Rx Guide Glucose Meter) lancing device with lancets kit #1 ea 03/11/23 Rx (Accu-Chek FastClix Lancing Device kit) metformin 500 mg tablet,extended 500 mg PO DAILY #90 tabs 03/11/23 01/19/24 Rx release 24 hr Laboratory Tests 01/19/24 07:35 POC Capillary Glucose 104 mg/dl (65-105) Patient hx anesthesia problems: none Family hx anesthesia problems: none Results Review: All pre-operative results and documents have been reviewed as part of the pre- operative evaluation. [facility] Past Medical History Medical History Colon cancer screening Diabetes Morbid obesity due to excess calories Social History Social History Smoking status: Never smoker Alcohol intake: never Substance use: never Substance use type: does not use Do You Feel Safe in your Home?: Yes Lack of Transportation: No Lack of Food: Never True Current Housing: I Have Housing Concerned About Future Housing: No Difficulty Paying Gas/Electric Bills: No Difficulty Paying for Meds: No Currently Unemployed: No Education: Associate Degree Difficulty w/ Childcare or Family Care: No Living arrangements: with family Gender identity (if verbalized by the patient): Male Spiritual care concerns: No Anes - Eval Final PreProcedure Day of Procedure 01/19/24 07:53 Patient weight: morbidly obese Heart: regular rate and rhythm Airway: Mallampati scale class II Neurological: alert and oriented Last oral intake: 2 hours (clears) ASA classification: III Emergent: no Anesthetic plan: proceed Anesthesia type and monitoring: general GIVS and standard monitoring Results Review: All pre-operative results and documents have been reviewed as part of the pre- operative evaluation. Informed Consent: The patient's anesthetic plan and its attendant risks and benefits were discussed with the patient/family/POA. Questions were solicited and answers provided to the satisfaction of the patient/family/POA.
[2024-01-19 08:18] VITALS: BP 98/63; PULSE 82; RESP 24; O2SAT 98
[2024-01-19 08:28] VITALS: BP 102/68; PULSE 63; RESP 17; O2SAT 96
[2024-01-19 08:38] VITALS: BP 122/64; PULSE 67; RESP 18; O2SAT 98
== END 2024-01-19 08:47 | disposition home or self-care (01) ==
PROVIDERS: PCP Nurse Practitioner; Referring Provider Nurse Practitioner; Visit Provider Internal Medicine Gastroenterology
PROC: 0DJD8ZZ Inspection of Lower Intestinal Tract, Via Natural or Artificial Opening Endoscopic (ICD-10-PCS; CPT 45378; principal; 2024-01-19 07:30)
DX: Z12.11 Encounter for screening for malignant neoplasm of colon (principal); E11.9 Type 2 diabetes mellitus without complications; E66.01 Morbid (severe) obesity due to excess calories; Z68.42 Body mass index [BMI] 45.0-49.9, adult; Z79.84 Long term (current) use of oral hypoglycemic drugs; Z79.82 Long term (current) use of aspirin
CPT/HCPCS: 45378; 82948; J2003; J2704; J7120